=== PATIENT | male | born 1990 | race Caucasian/White ===

== ENCOUNTER 2022-11-03 10:08 | Emergency (ER) | payer OTHER, BC | END 2022-11-03 11:58 | disposition home or self-care (01) | LOC: MW.ED 10:08 | DX: S46.001A Unspecified injury of muscle(s) and tendon(s) of the rotator cuff of right shoulder, initial encounter (principal); W22.8XXA Striking against or struck by other objects, initial encounter; Y92.89 Other specified places as the place of occurrence of the external cause; Y99.0 Civilian activity done for income or pay | CPT/HCPCS: 73030-26-RT; 73030-RT; 99283 ==

== ENCOUNTER 2024-08-29 11:37 | Emergency (ER) | payer OTHER ==
[2024-08-29 13:37] LABS: HIV12 AG/AB 4TH GEN W/REFLEX 0.2 INDEX (<1.0)
== END 2024-08-29 14:45 | disposition home or self-care (01) ==
LOC: MW.ED 11:37
DX: Z20.5 Contact with and (suspected) exposure to viral hepatitis (principal)
CPT/HCPCS: 36415; 86706; 86803; 87389; 99283